=== PATIENT | male | born 1995 | race Caucasian/White ===

== ENCOUNTER 2020-05-05 19:45 | Inpatient (IN) | payer MEDICAID ==
[~2020-05-05] VITALS: Ht 180.3 cm; Wt 74.3 kg
[2020-05-06] MEDS ORDERED: ZOLPIDEM TARTRATE 10 MG TABLET PO PRN (01:15)
[2020-05-06] MEDS ORDERED: HALOPERIDOL 5 MG TABLET PO PRN (01:15)
[2020-05-06 04:01] VITALS: BP 137/94
[2020-05-06 08:19] VITALS: BP 118/66
[2020-05-06] MEDS ORDERED: ALBUTEROL SULFATE HFA 90 MCG/PUFF 8 GM INHALER IH PRN (09:30)
[2020-05-06] MEDS ORDERED: NICOTINE 14 MG/24 HOUR PATCH TD PRN (09:30)
[2020-05-06] MEDS ORDERED: MAGNESIUM HYDROXIDE SUSPENSION 30 ML UDCUP PO PRN (09:30)
[2020-05-06] MEDS ORDERED: ONDANSETRON HCL 4 MG TABLET PO PRN (09:30)
[2020-05-06] MEDS ORDERED: MAG HYDROX/AL HYDROX/SIMETH ES 30 ML SUSPENSION UDCUP PO PRN (09:30)
[2020-05-06] MEDS ORDERED: CloNIDine HCL 0.1 MG TABLET PO PRN (09:30)
[2020-05-06] MEDS ORDERED: DOCUSATE SODIUM 100 MG CAPSULE PO PRN (09:30)
[2020-05-06] MEDS ORDERED: GuaiFENesin/D-METHORPHAN [SUGAR-FREE] 200-20MG/10 ML SYRUP UDCUP PO PRN (09:30)
[2020-05-06] MEDS ORDERED: LOPERAMIDE HCL 2 MG CAPSULE PO PRN (09:30)
[2020-05-06] MEDS ORDERED: PETROLATUM,WHITE 28 GM JELLY TP PRN (09:30)
[2020-05-06] MEDS ORDERED: ACETAMINOPHEN 325 MG TABLET PO PRN (09:30)
[2020-05-06] MEDS ORDERED: IBUPROFEN 400 MG TABLET PO PRN (09:30)
[2020-05-06] MEDS: OLANZapine 5 MG TABLET PO SCH (16:08)
[2020-05-06 16:12] VITALS: BP 136/86
[2020-05-06] MEDS ORDERED: DiphenhydrAMINE HCL 50 MG/ML VIAL IM ONE (16:30)
[2020-05-06] MEDS ORDERED: HALOPERIDOL LACTATE 5 MG/ML VIAL IM ONE (16:30)
[2020-05-06] MEDS ORDERED: LORazepam 2 MG/ML VIAL IM ONE (16:30)
[2020-05-07 08:13] VITALS: BP 156/71
[2020-05-07] MEDS: OLANZapine 5 MG TABLET PO SCH ×2 (09:01→16:04)
[2020-05-07] MEDS: LORazepam 1 MG TABLET PO PRN (16:04)
[2020-05-07 17:19] VITALS: BP 115/66
[2020-05-08 06:03] VITALS: BP 124/72
[2020-05-08 08:09] VITALS: BP 110/57
[2020-05-08] MEDS: OLANZapine 5 MG TABLET PO SCH ×2 (08:48→16:53)
[2020-05-08] MEDS: LORazepam 1 MG TABLET PO PRN (09:27)
[2020-05-08] MEDS ORDERED: OLAN5TAB27 PO (12:04)
== END 2020-05-08 17:05 | disposition home or self-care (01) | DRG 751 ==
LOC: B3A 05-06 01:08
PROVIDERS: ADMIT Psychiatry & Neurology Psychiatry; ATTEND Psychiatry & Neurology Psychiatry
DX: F29 Unspecified psychosis not due to a substance or known physiological condition (principal); F42.9 Obsessive-compulsive disorder, unspecified; G44.209 Tension-type headache, unspecified, not intractable; K21.9 Gastro-esophageal reflux disease without esophagitis; R07.9 Chest pain, unspecified; Z59.0 Homelessness; Z79.899 Other long term (current) drug therapy
CPT/HCPCS: 84439; J1200; J1630; J2060; Q0162

== ENCOUNTER 2023-09-10 18:20 | Emergency (ER) | payer MEDICAID, OTHER ==
[~2023-09-10] VITALS: Ht 180.3 cm; Wt 86.4 kg
[~2023-09-10 18:20] MED LIST: OLAN5TAB77 PO
[2023-09-10 18:26] VITALS: BP 133/92; PULSE 107; RESP 18; TEMP 98.5
[2023-09-10] MEDS ORDERED: ATOR10TA69 PO (20:12)
[2023-09-10] MEDS ORDERED: ESCI5TAB16 PO (20:12)
[2023-09-10] MEDS ORDERED: RISP3TAB35 PO (20:12)
[2023-09-10] MEDS ORDERED: HYDROCODONE/ACETAMINOPHEN 5-325 MG TABLET PO ONE (20:15)
[2023-09-10 20:36] LABS: BASOPHILS % (AUTO) 0.3 % (0.0-2.0); EOSINOPHILS % (AUTO) 0.8 % (1.0-6.0); HEMATOCRIT 42.2 % (41-53); HEMOGLOBIN 14.2 g/dL (13.5-17.5); LYMPHOCYTES # (AUTO) 2.5 K/uL (1.0-4.8); LYMPHOCYTES % (AUTO) 23.6 % (22.0-44.0); MEAN CORPUSCULAR HEMOGLOBIN 30.1 pg (26.0-34.0); MEAN CORPUSCULAR HGB CONC 33.6 G/dL (31.0-37.0); MEAN CORPUSCULAR VOLUME 90 fL (80-100); MONOCYTES # (AUTO) 0.7 K/uL (0.1-1.0); MONOCYTES % (AUTO) 6.7 % (2.0-9.0); NEUTROPHILS # (AUTO) 7.4 K/uL (1.8-7.7); NEUTROPHILS % (AUTO) 68.6 % (40.0-70.0); PLATELET COUNT (AUTO) 300 K/uL (150-450); RED BLOOD CELL COUNT(AUTO) 4.71 MIL/uL (4.50-5.90); RED CELL DISTRIBUTION WIDTH 12.6 % (11.5-14.5); WHITE BLOOD COUNT (AUTO) 10.7 K/uL (4.5-11.0)
[2023-09-10 20:49] LABS: ANION GAP 11 mmol/L (8-16); CALCIUM, TOTAL 9.2 mg/dL (8.8-10.5); CARBON DIOXIDE 25 mmol/L (22-29); CHLORIDE 105 mmol/L (98-107); CREATININE 0.88 mg/dL (0.60-1.30); GLOMERULAR FILTR. RATE CALC > 60 mL/min (>60); GLUCOSE,RANDOM 108 mg/dL (70-110); POTASSIUM 3.9 mmol/L (3.5-5.1); SODIUM SERUM 141 mmol/L (136-145); UREA NITROGEN, BLOOD 9 mg/dL (7-18)
[2023-09-10 20:52] LABS: ALANINE AMINOTRANSFERASE 31 U/L (12-78); ALBUMIN 4.1 g/dL (3.4-5.0); ALKALINE PHOSPHATASE 77 U/L (46-116); ASPARTATE AMINOTRANSFERASE 18 U/L (15-37); BILIRUBIN,TOTAL 0.4 mg/dL (0.1-1.0)
[2023-09-10] MEDS ORDERED: RisperiDONE 1 MG TABLET PO ONE (22:15)
[2023-09-10] MEDS ORDERED: LORazepam 1 MG TABLET PO ONE (22:15)
[2023-09-10] MEDS ORDERED: DOXY-354 PO (22:26)
[2023-09-10] MEDS ORDERED: TRAM-559 PO (22:27)
== END 2023-09-10 22:53 | disposition home or self-care (01) ==
LOC: EMS 18:21
DX: N45.1 Epididymitis (principal); F32.A Depression, unspecified; E78.00 Pure hypercholesterolemia, unspecified; F20.9 Schizophrenia, unspecified
CPT/HCPCS: 76870; 80053; 85025; 99284

== ENCOUNTER 2024-04-23 19:54 | Inpatient (IN) | payer MEDICAID, OTHER ==
[~2024-04-23] VITALS: Ht 180.3 cm; Wt 88.0 kg
[~2024-04-23 19:54] MED LIST changes: +ATOR10TA69 PO; +DOXY-354 PO; +ESCI5TAB16 PO; -OLAN5TAB77 PO; +RISP3TAB35 PO; +TRAM50TA5 PO
[2024-04-23 21:48] LABS: BASOPHILS % (AUTO) 0.2 % (0.0-2.0); EOSINOPHILS % (AUTO) 0 % (1.0-6.0); HEMOGLOBIN 14.8 g/dL (13.5-17.5); LYMPHOCYTES # (AUTO) 2.5 K/uL (1.0-4.8); LYMPHOCYTES % (AUTO) 19.9 % (22.0-44.0); MEAN CORPUSCULAR HGB CONC 33.6 G/dL (31.0-37.0); MEAN CORPUSCULAR VOLUME 89 fL (80-100); MONOCYTES # (AUTO) 1.1 K/uL (0.1-1.0); MONOCYTES % (AUTO) 8.8 % (2.0-9.0); NEUTROPHILS % (AUTO) 71.1 % (40.0-70.0); PLATELET COUNT (AUTO) 280 K/uL (150-450); RED BLOOD CELL COUNT(AUTO) 4.92 MIL/uL (4.50-5.90); RED CELL DISTRIBUTION WIDTH 12.8 % (11.5-14.5); WHITE BLOOD COUNT (AUTO) 12.7 K/uL (4.5-11.0)
[2024-04-23 21:59] LABS: ANION GAP 11 mmol/L (8-16); CALCIUM, TOTAL 9.4 mg/dL (8.8-10.5); CARBON DIOXIDE 26 mmol/L (22-29); CHLORIDE 101 mmol/L (98-107); CREATININE 0.92 mg/dL (0.60-1.30); GLOMERULAR FILTR. RATE CALC > 60 mL/min (>60); GLUCOSE,RANDOM 136 mg/dL (70-110); POTASSIUM 4.1 mmol/L (3.5-5.1); SODIUM SERUM 138 mmol/L (136-145); UREA NITROGEN, BLOOD 9 mg/dL (7-18)
[2024-04-23 22:03] LABS: ALCOHOL, BLOOD (SERUM) < 3 mg/dL (0-10)
[2024-04-23 23:17] LABS: COVID AG,FIA SOURCE NASAL SWAB
[2024-04-23 23:23] LABS: SARS-COV2 (COVID) ANTIGEN,FIA Negative (Negative)
[2024-04-23] MEDS: LORazepam 1 MG TABLET PO ONE (23:31)
[2024-04-24] MEDS: HALOPERIDOL 5 MG TABLET PO PRN (08:03)
[2024-04-24] MEDS: LORazepam 2 MG TABLET PO PRN (08:04)
[2024-04-24 10:58] LABS: APPEARANCE,URINE CLEAR (CLEAR); BILIRUBIN,URINE NEGATIVE (NEGATIVE); COLOR,URINE YELLOW (YELLOW); GLUCOSE, URINE (UA) NEGATIVE (NEGATIVE); KETONES,URINE TRACE mg/dL (NEGATIVE); LEUKOCYTE ESTERASE ,URINE NEGATIVE (NEGATIVE); NITRATE,URINE NEGATIVE (NEGATIVE); OCCULT BLOOD,URINE NEGATIVE (NEGATIVE); PROTEIN,URINE NEGATIVE (NEGATIVE); SPECIFIC GRAVITIY, URINE 1.025 (1.003-1.030); UROBILINOGEN,URINE <=1.0 mg/dL (<=1.0)
[2024-04-24 11:02] LABS: ALCOHOL, URINE DRUG SCREEN NEGATIVE (NEGATIVE); AMPHET/METH SCREEN,URINE NEGATIVE (NEGATIVE); BARBITURATE SCREEN, URINE NEGATIVE (NEGATIVE); BENZODIAZEPINES SCREEN,URINE NEGATIVE (NEGATIVE); CANNABINOID SCREEN,URINE NEGATIVE (NEGATIVE); COCAINE SCREEN,URINE NEGATIVE (NEGATIVE); METHADONE SCREEN, URINE NEGATIVE (NEGATIVE); OPIATE SCREEN,URINE NEGATIVE (NEGATIVE); PHENCYCLIDINE SCREEN,URINE NEGATIVE (NEGATIVE)
[2024-04-24] MEDS ORDERED: PETROLATUM,WHITE 28 GM JELLY TP PRN (14:30)
[2024-04-24] MEDS ORDERED: MAGNESIUM HYDROXIDE SUSPENSION 30 ML UDCUP PO PRN (14:30)
[2024-04-24] MEDS ORDERED: GuaiFENesin/D-METHORPHAN [SUGAR-FREE] 200-20MG/10 ML SYRUP UDCUP PO PRN (14:30)
[2024-04-24] MEDS ORDERED: ACETAMINOPHEN 325 MG TABLET PO PRN (14:30)
[2024-04-24] MEDS ORDERED: LOPERAMIDE HCL 2 MG CAPSULE PO PRN (14:30)
[2024-04-24] MEDS ORDERED: NICOTINE 14 MG/24 HOUR PATCH TD PRN (14:30)
[2024-04-24] MEDS ORDERED: DOCUSATE SODIUM 100 MG CAPSULE PO PRN (14:30)
[2024-04-24] MEDS ORDERED: MAG HYDROX/ALUMINUM HYD/SIMETH ES 30 ML SUSPENSION UDCUP PO PRN (14:30)
[2024-04-24] MEDS ORDERED: ALBUTEROL SULFATE HFA 90 MCG/PUFF 8 GM INHALER IH PRN (14:30)
[2024-04-24] MEDS ORDERED: CloNIDine HCL 0.1 MG TABLET PO PRN (14:30)
[2024-04-24] MEDS ORDERED: IBUPROFEN 400 MG TABLET PO PRN (14:30)
[2024-04-24 15:17] VITALS: BP 157/99; PULSE 89; RESP 18; TEMP 97.7; O2SAT 100
[2024-04-24] MEDS: ATORVASTATIN CALCIUM 10 MG TABLET PO SCH (20:44)
[2024-04-24 21:11] VITALS: BP 102/59; PULSE 88; RESP 18; TEMP 97.7; O2SAT 97
[2024-04-25 07:54] LABS: HEMOGLOBIN A1C 5.3 % (3.8-5.6)
[2024-04-25 08:14] LABS: CHOL/HDL RATIO 4.3 (4.2-7.3); THYROID STIMULATING HORMONE 0.92 uIU/mL (0.36-3.74)
[2024-04-25 09:25] VITALS: RESP 18
[2024-04-25] MEDS: ESCITALOPRAM OXALATE 10 MG TABLET PO SCH (14:43)
[2024-04-25 20:28] VITALS: RESP 20
[2024-04-25] MEDS: RisperiDONE 3 MG TABLET PO SCH (20:46)
[2024-04-26 07:52] VITALS: BP 120/85; PULSE 97; RESP 18; TEMP 98.1; O2SAT 98
[2024-04-26 09:18] VITALS: BP 120/85; PULSE 97; RESP 18; TEMP 98.3; O2SAT 98
[2024-04-26] MEDS: ONDANSETRON HCL 4 MG TABLET PO PRN (18:56)
[2024-04-26 21:29] VITALS: BP 132/75; PULSE 72; RESP 19; TEMP 97.8; O2SAT 98
[2024-04-27 09:27] VITALS: BP 132/80; PULSE 94; RESP 18; TEMP 97.8; O2SAT 97
[2024-04-27 20:22] VITALS: BP 123/67; PULSE 87; RESP 18; TEMP 97.3; O2SAT 95
[2024-04-27] MEDS: ZOLPIDEM TARTRATE 10 MG TABLET PO PRN (21:44)
[2024-04-28 07:35] LABS: BASOPHILS % (AUTO) 0.3 % (0.0-2.0); EOSINOPHILS % (AUTO) 0.8 % (1.0-6.0); HEMATOCRIT 41.9 % (41-53); HEMOGLOBIN 14.3 g/dL (13.5-17.5); LYMPHOCYTES # (AUTO) 2.5 K/uL (1.0-4.8); MEAN CORPUSCULAR HEMOGLOBIN 30.7 pg (26.0-34.0); MEAN CORPUSCULAR HGB CONC 34.1 G/dL (31.0-37.0); MEAN CORPUSCULAR VOLUME 90 fL (80-100); MONOCYTES # (AUTO) 0.7 K/uL (0.1-1.0); MONOCYTES % (AUTO) 8.2 % (2.0-9.0); NEUTROPHILS # (AUTO) 4.8 K/uL (1.8-7.7); NEUTROPHILS % (AUTO) 59.7 % (40.0-70.0); PLATELET COUNT (AUTO) 283 K/uL (150-450); RED BLOOD CELL COUNT(AUTO) 4.66 MIL/uL (4.50-5.90); RED CELL DISTRIBUTION WIDTH 12.9 % (11.5-14.5); WHITE BLOOD COUNT (AUTO) 8.1 K/uL (4.5-11.0)
[2024-04-28 08:09] VITALS: BP 124/77; PULSE 91; RESP 18; TEMP 97.7; O2SAT 100
[2024-04-28 20:34] VITALS: BP 130/80; PULSE 88; RESP 18; TEMP 97.3; O2SAT 98
[2024-04-29 09:06] VITALS: BP 129/79; PULSE 100; RESP 18; TEMP 96.7; O2SAT 97
[2024-04-29] MEDS: RisperiDONE 2 MG TABLET PO SCH (09:39)
[2024-04-30 08:55] VITALS: BP 126/84; PULSE 98; RESP 20; TEMP 98; O2SAT 97
[2024-04-30 20:36] VITALS: BP 120/71; PULSE 81; RESP 18; TEMP 97; O2SAT 98
[2024-05-01 08:27] VITALS: BP 120/66; RESP 18; O2SAT 98
[2024-05-01 20:16] VITALS: BP 140/84; PULSE 100; RESP 18; TEMP 98.3; O2SAT 94
[2024-05-02 08:39] VITALS: BP 123/72; PULSE 94; RESP 18; TEMP 97.9; O2SAT 97
[2024-05-02 21:34] VITALS: BP 130/80; PULSE 90; RESP 19; TEMP 97.2; O2SAT 98
[2024-05-03 08:38] VITALS: BP 117/63; PULSE 81; RESP 18; TEMP 98.3; O2SAT 97
[2024-05-04 09:34] VITALS: BP 130/77; PULSE 94; RESP 17; TEMP 97.9; O2SAT 98
[2024-05-04] MEDS: RisperiDONE ER SUSPENSION 100 MG/0.28 ML PRE-FILLED SYRINGE SQ SCH (12:43)
[2024-05-04 20:06] VITALS: BP 113/75; PULSE 87; RESP 18; TEMP 97.9; O2SAT 97
[2024-05-05 08:38] VITALS: BP 110/59; PULSE 71; RESP 18; TEMP 98; O2SAT 99
[2024-05-05 20:03] VITALS: BP 132/81; PULSE 104; RESP 18; TEMP 97.2; O2SAT 97
[2024-05-06 08:26] VITALS: RESP 18
[2024-05-06] MEDS: DIVALPROEX SODIUM 500 MG DR TABLET PO SCH (10:59)
[2024-05-06 22:00] VITALS: BP 106/79; PULSE 95; RESP 18; TEMP 97.8; O2SAT 96
[2024-05-07 08:13] VITALS: BP 125/77; PULSE 77; RESP 16; TEMP 98.2; O2SAT 97
[2024-05-07 20:02] VITALS: BP 111/68; PULSE 87; RESP 18; TEMP 98.1; O2SAT 98
[2024-05-08 08:57] VITALS: BP 117/60; PULSE 85; RESP 18; TEMP 97.9; O2SAT 96
[2024-05-08 20:51] VITALS: BP 121/77; PULSE 82; RESP 18; TEMP 97.8
[2024-05-09 08:45] VITALS: BP 120/73; PULSE 77; RESP 18; TEMP 97.7; O2SAT 95
[2024-05-09 20:57] VITALS: BP 118/74; PULSE 80; RESP 18; TEMP 97.9
[2024-05-10 08:16] VITALS: BP 111/60; PULSE 71; RESP 18; TEMP 98.2; O2SAT 98
[2024-05-10 20:15] VITALS: RESP 18
[2024-05-11 08:32] VITALS: BP 127/76; PULSE 73; RESP 18; TEMP 97.9; O2SAT 98
[2024-05-11 20:30] VITALS: RESP 18
[2024-05-12 08:09] VITALS: BP 104/68; PULSE 98; RESP 18; TEMP 98; O2SAT 99
[2024-05-12] MEDS ORDERED: DIVA-112 PO (13:56)
[2024-05-12] MEDS ORDERED: ESCI-8 PO (13:57)
[2024-05-12] MEDS ORDERED: ATOR10TA PO (13:58)
[2024-06-03] MEDS ORDERED: RisperiDONE ER SUSPENSION 100 MG/0.28 ML PRE-FILLED SYRINGE SQ SCH (09:00)
== END 2024-05-12 14:15 | disposition home or self-care (01) | DRG 750 ==
LOC: EMS 20:07 → 3EC 04-24 12:48
PROVIDERS: ADMIT Psychiatry & Neurology Psychiatry; ATTEND Psychiatry & Neurology Psychiatry
PROC: GZHZZZZ Group Psychotherapy (ICD-10-PCS; principal; 2024-04-25)
PROC: GZ52ZZZ Individual Psychotherapy, Cognitive (ICD-10-PCS; 2024-04-25)
DX: F20.0 Paranoid schizophrenia (principal); R45.851 Suicidal ideations; D72.829 Elevated white blood cell count, unspecified; Z20.822 Contact with and (suspected) exposure to COVID-19; E78.5 Hyperlipidemia, unspecified; G47.00 Insomnia, unspecified
CPT/HCPCS: 80048; 80061; 80164; 80307; 81003; 83036; 84443; 85025; 99285; G0480; Q0162; Q9967